=== PATIENT | female | born 1985 | race Two or more races ===

== ENCOUNTER 2016-05-06 22:17 | Emergency (ER) | payer OTHER ==
[~2016-05-06] VITALS: Ht 165.1 cm; Wt 62.6 kg
[2016-05-06 22:26] VITALS: BP 144/80
[2016-05-06] MEDS ORDERED: LIDOCAINE 1%-EPI 1:100,000 50 ML VIAL IJ STA (23:11)
== END 2016-05-07 00:02 | disposition home or self-care (01) ==
LOC: ER 22:19
DX: S61.411A Laceration without foreign body of right hand, initial encounter (principal); W27.8XXA Contact with other nonpowered hand tool, initial encounter; Y93.89 Activity, other specified; Y92.89 Other specified places as the place of occurrence of the external cause; Y99.9 Unspecified external cause status
CPT/HCPCS: 12001; 99283; A4606; J3490; Z7610